=== PATIENT | female | born 1950 | race Caucasian/White ===

== ENCOUNTER 2017-01-15 11:37 | Emergency (ER) | payer OTHER ==
[~2017-01-15 11:37] MED LIST: ZANTAC150 MG PO
== END 2017-01-15 13:10 | disposition home or self-care (01) ==
LOC: ER1 11:37
DX: S92.522A Displaced fracture of middle phalanx of left lesser toe(s), initial encounter for closed fracture (principal); I10 Essential (primary) hypertension; E11.9 Type 2 diabetes mellitus without complications; Z88.5 Allergy status to narcotic agent; W22.8XXA Striking against or struck by other objects, initial encounter; Y92.009 Unspecified place in unspecified non-institutional (private) residence as the place of occurrence of the external cause
CPT/HCPCS: 73630; 99283

== ENCOUNTER → 2021-07-29 | Outpatient (CLI) | payer MEDICARE, OTHER ==
[~2021-07-29] MED LIST changes: +ADVAIR 250-501 EACH INH; +ADVAIR HFA 115-28 GM INH; +ALEVE220 M1 PO; +ALLEGRA ALLERG180 MG PO; +AMOX TR-K CLV1 EAC4 PO; +BASAGLAR K100 UNIT/1 SQ; +BENZONATATE200 MG PO; +DESYREL 50 MG T50 MG PO; +ECOTRIN81 MG PO; +FLONASE 0.05% N16 GM; +FLUNISOLIDE25 ML; +FOLIC ACID 1 MG1 MG PO; +GLUCOPHAGE XR750 MG PO; +HUMIRA40 MG/0.8 SQ; +HUMULIN R100 UNIT/1 SQ; +K-DUR TAB 20 M20 MEQ PO; +LASIX40 MG PO; +LOPRESSOR50 MG PO; +METHOTREXATE T2.5 MG PO; +METOLAZONE10 MG PO; +NASALIDE INH SO25 ML; +NEURONTIN 300300 MG PO; +NORCO 7.5-3251 EACH PO; +OMEPRAZOLE20 MG PO; +REQUIP1 MG PO; +SINGULAIR10 MG PO; +ULTRAM50 MG PO; +ZAROXOLYN/DIULO5 MG PO; +ZESTRIL2.5 MG PO; +ZOCOR20 MG PO; +ZYRTEC10 MG PO
== END ==
LOC: EXRD 09:45
DX: N28.1 Cyst of kidney, acquired (principal)
CPT/HCPCS: 76775

== ENCOUNTER → 2022-03-15 | Outpatient (CLI) | payer MEDICARE, OTHER ==
[~2022-03-15] VITALS: Ht 165.1 cm; Wt 131.1 kg
== END ==
LOC: OPSV 08:00
DX: N39.0 Urinary tract infection, site not specified (principal)
CPT/HCPCS: 96372; J1335

== ENCOUNTER → 2022-03-16 | Outpatient (CLI) | payer MEDICARE, OTHER ==
[~2022-03-16] VITALS: Ht 165.1 cm; Wt 131.1 kg
== END ==
LOC: OPSV 08:00
DX: N39.0 Urinary tract infection, site not specified (principal)
CPT/HCPCS: 96372; J1335

== ENCOUNTER → 2022-03-17 | Outpatient (CLI) | payer MEDICARE, OTHER ==
[~2022-03-17] VITALS: Ht 165.1 cm; Wt 131.1 kg
== END ==
LOC: OPSV 07:41
DX: N39.0 Urinary tract infection, site not specified (principal)
CPT/HCPCS: 96372; J1335

== ENCOUNTER → 2022-03-18 | Outpatient (CLI) | payer MEDICARE, OTHER ==
[~2022-03-18] VITALS: Ht 165.1 cm; Wt 131.1 kg
== END ==
LOC: OPSV 08:00
DX: N39.0 Urinary tract infection, site not specified (principal)
CPT/HCPCS: 96372; J1335

== ENCOUNTER → 2022-03-19 | Outpatient (CLI) | payer MEDICARE, OTHER ==
[~2022-03-19] VITALS: Ht 165.1 cm; Wt 131.1 kg
== END ==
LOC: OPSV 07:36
DX: N39.0 Urinary tract infection, site not specified (principal)
CPT/HCPCS: 96372

== ENCOUNTER → 2022-03-20 | Outpatient (CLI) | payer MEDICARE, OTHER | LOC: EROP 07:00 → OPSV 07:00 → EROP 07:22 | DX: N39.0 Urinary tract infection, site not specified (principal) | CPT/HCPCS: 96372; J1335 ==

== ENCOUNTER → 2022-03-21 | Outpatient (CLI) | payer MEDICARE, OTHER | LOC: EROP 06:38 → OPSV 06:38 | DX: N39.0 Urinary tract infection, site not specified (principal) | CPT/HCPCS: 96365; J1335 ==

== ENCOUNTER → 2022-03-22 | Outpatient (CLI) | payer MEDICARE, OTHER ==
[~2022-03-22] VITALS: Ht 165.1 cm; Wt 131.1 kg
== END ==
LOC: OPSV 07:56
DX: N39.0 Urinary tract infection, site not specified (principal)
CPT/HCPCS: 96372

== ENCOUNTER → 2022-03-23 | Outpatient (CLI) | payer MEDICARE, OTHER ==
[~2022-03-23] VITALS: Ht 165.1 cm; Wt 131.1 kg
== END ==
LOC: OPSV 07:41
DX: N39.0 Urinary tract infection, site not specified (principal); R19.00 Intra-abdominal and pelvic swelling, mass and lump, unspecified site; N28.1 Cyst of kidney, acquired
CPT/HCPCS: 82565; 84520; 96372; J1335

== ENCOUNTER → 2022-03-24 | Outpatient (CLI) | payer MEDICARE, OTHER ==
[~2022-03-24] VITALS: Ht 165.1 cm; Wt 131.1 kg
== END ==
LOC: OPSV 07:45
DX: R19.00 Intra-abdominal and pelvic swelling, mass and lump, unspecified site (principal); N39.0 Urinary tract infection, site not specified
CPT/HCPCS: 72194; 96372; J1335; Q9967